=== PATIENT | female | born 1995 | race African-American/Black ===

== ENCOUNTER 2022-04-22 23:51 | Emergency (ER) | payer OTHER ==
[~2022-04-22] VITALS: Ht 170.2 cm; Wt 77.1 kg
[2022-04-23] MEDS ORDERED: methylPREDNISolone SOD SUCC 125 MG/2ML VIAL ONE (00:12)
[2022-04-23] MEDS ORDERED: IPRATROPIUM NEB FS 0.5 MG/2.5 ML AMPUL.NEB ONE (00:15)
[2022-04-23] MEDS ORDERED: ALBUTEROL FS 2.5 MG/3 ML VIAL.NEB ONE ×2 (00:15→01:04)
[2022-04-23 00:30] VITALS: BP 144/70
[2022-04-23] MEDS ORDERED: IV NS 0.9% 1,000 ML IV ONE (00:30)
[2022-04-23] MEDS ORDERED: ALBUTEROL FS 2.5 MG/3 ML VIAL.NEB CONTNEB ONE ×2 (00:30→01:00)
[2022-04-23] MEDS ORDERED: IPRATROPIUM NEB FS 0.5 MG/2.5 ML AMPUL.NEB NEB ONE (00:30)
[2022-04-23] MEDS ORDERED: methylPREDNISolone SOD SUCC 125 MG/2ML VIAL IV ONE (00:30)
[2022-04-23] MEDS ORDERED: EPINEPHRINE (1:1000) 1 MG/ML AMPUL SUBCUT ONE (01:00)
[2022-04-23] MEDS ORDERED: EPINEPHRINE (1:1000) 1 MG/ML AMPUL ONE (01:15)
[2022-04-23] MEDS ORDERED: ALBU8.5H8 INH (01:56)
[2022-04-23] MEDS ORDERED: PRED20TA PO (01:56)
--- NOTE | 2022-04-23 02:08 | NUR ---
Patient discharged to home in stable condition. Written and verbal after care instructions given. Patient verbalizes understanding of instruction.
== END 2022-04-23 02:10 | disposition home or self-care (01) ==
LOC: ER 23:56
DX: J45.901 Unspecified asthma with (acute) exacerbation (principal); J45.909 Unspecified asthma, uncomplicated
CPT/HCPCS: 99285; 96374; 71045; 96361; 93005 ×2; 96372; 94640 ×3; J0171; J2930; J7030